=== PATIENT | female | born 1975 | race Two or more races ===

== ENCOUNTER 2025-03-01 15:51 | Emergency (ER) | payer OTHER ==
[~2025-03-01] VITALS: Ht 167.6 cm; Wt 95.3 kg
[2025-03-01 15:55] VITALS: TEMP 98.6
[2025-03-01] MEDS: ONDANSETRON HCL/PF 4 MG/2 ML VIAL IV ONE (16:50)
[2025-03-01] MEDS ORDERED: ONDANSETRON HCL/PF 4 MG/2 ML VIAL ONE (16:54)
[2025-03-01] MEDS: IV NS 0.9% 1,000 ML BAG IV ONE (17:00)
[2025-03-01 17:22] LABS: PLATELET COUNT (AUTO) 222 K/uL (150-450); RED BLOOD CELL COUNT(AUTO) 4.25 MIL/uL (4.0-5.2); RED CELL DISTRIBUTION WIDTH 13.9 % (11.5-15.0); WHITE BLOOD COUNT (AUTO) 8.7 K/uL (4.3-11.0)
[2025-03-01 17:43] LABS: ASPARTATE AMINOTRANSFERASE 26 U/L (15-37); CREATININE 0.8 mg/dL (0.6-1.3); SODIUM SERUM 138 mmol/L (136-145); TOTAL PROTEIN, SERUM 7.3 g/dL (6.4-8.2); UREA NITROGEN, BLOOD 15 mg/dL (7-18)
[2025-03-01] MEDS ORDERED: CEPH-570 PO (17:44)
[2025-03-01] MEDS ORDERED: IBUP-1490 PO (17:44)
[2025-03-01 17:48] LABS: CALCIUM, SERUM 9.0 mg/dL (8.5-10.1)
[2025-03-01 17:53] LABS: APPEARANCE,URINE CLEAR (CLEAR); BLOOD, URINE 2+ Ery/uL (NEGATIVE); LEUKOCYTE ESTERASE ,URINE 1+ (NEGATIVE); NITRITE, URINE NEGATIVE (NEGATIVE); UGLUCOSE NEGATIVE (NEGATIVE)
[2025-03-01] MEDS ORDERED: CEFTRIAXONE 1 G VIAL IM ONE (18:00)
[2025-03-01] MEDS ORDERED: KETOROLAC TROMETHAMINE 15 MG/ML VIAL ONE (18:12)
[2025-03-01] MEDS ORDERED: CEFTRIAXONE 1GM BAG (ER ONLY) 50 ML IV ONE (18:12)
[2025-03-01 18:14] LABS: ADD URINE CULTURE YES
[2025-03-01] MEDS: CEFTRIAXONE 1 G in IV D5W 50 ML IV ONE (18:20)
[2025-03-01] MEDS: KETOROLAC TROMETHAMINE 15 MG/ML VIAL IV ONE (18:21)
[2025-03-01 18:49] VITALS: BP 135/89; O2SAT 97
[2025-03-01] MEDS ORDERED: ONDANSETRON 4 MG TAB.RAPDIS ONE (19:10)
[2025-03-01] MEDS ORDERED: ONDA4TAB5 PO (19:11)
[2025-03-01] MEDS: ONDANSETRON 4 MG TAB.RAPDIS SL ONE (19:12)
== END 2025-03-01 19:14 | disposition home or self-care (01) ==
LOC: ER 16:49
DX: N12 Tubulo-interstitial nephritis, not specified as acute or chronic (principal); R14.0 Abdominal distension (gaseous); R11.2 Nausea with vomiting, unspecified; R00.2 Palpitations
CPT/HCPCS: 99285; 96365; 71045; 96361; 96375; 93005; 85025; 80048; 87086; 83690; 80076; 81001; 36415; 84484; J1885; J2405; J7030; Q0162; J0696